=== PATIENT | male | born 1995 | race Caucasian/White ===

== ENCOUNTER 2016-08-14 03:10 | Emergency (ER) | payer OTHER ==
[2016-08-14 03:20] VITALS: TEMP 37.3
[2016-08-14] MEDS ORDERED: ASPIRIN 81 MG CHEW PO STA (03:28)
--- NOTE | 2016-08-14 03:46 | EMERGENCY ROOM VISIT NOTE ---
History Report prepared by [place]: Phylicia Guerrero Under the Supervision of: Dr. Elli Purvis M.D. First contact with patient: 03:25 Chief Complaint: CHEST PAIN Stated Complaint: CHEST PAIN History of Present Illness The patient is a 21 year old male who presents to the Emergency Room with complaints of persistent left sided chest pain that began an hour ago. He was arguing with a friend when his pain began. Afterwards, he went back to bed but his pain persisted which concerned him. He called the nurse at [facility] who recommended that the patient come to the ED. His current pain is a 2/10. He notes that he ate within the past few hours. Upon arrival, he reports that he had occasional belching. Denies cough, shortness of breath, or other complaints. Denies any chest trauma. 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 A total of 10 systems reviewed and were otherwise negative. Past Medical & Surgical Medical Problems: (1) Blurred vision (2) No Known Active Medical Problems Family History Diabetes mellitus Social History Smoking Status: Never Smoker Marital Status: single Occupation Status: [employer] student Current/Historical Medications No Active Prescriptions or Reported Meds Allergies Coded Allergies: No Known Allergies (Unverified , 08/14/16) Physical Exam Vital Signs Date Time Temp Pulse Resp B/P Pulse Ox O2 Delivery O2 Flow Rate FiO2 08/14/16 05:48 80 16 105/49 98 Room Air 08/14/16 04:53 Room Air 08/14/16 03:20 37.3 94 20 132/68 100 Room Air Physical Exam Vital signs reviewed. General: Well-appearing 21 year old male, in no significant distress. HEENT: No scleral icterus, PERRLA, neck supple. Atraumatic. Cardiovascular: Regular rate and rhythm, no extra sounds. Pulmonary: Clear to auscultation bilaterally, normal work of breathing. Abdomen: Soft, nontender, nondistended, positive bowel sounds. Musculoskeletal: Atraumatic, no peripheral edema. Neurologic: Patient awake alert and oriented x 3 Skin: Warm, dry, no rash Medical Decision & Procedures ER Provider Diagnostic Interpretation: Chest x-ray 1 view per my interpretation: No pneumothorax, no focal lung consolidation, no failure Laboratory Results 08/14/16 04:15 Red Blood Count 4.97, Mean Corpuscular Volume 81.7, Mean Corpuscular Hemoglobin 28.4, Mean Corpuscular Hemoglobin Concent 34.7, Mean Platelet Volume 9.4, Neutrophils (%) (Auto) 71.2, Lymphocytes (%) (Auto) 18.3, Monocytes (%) (Auto) 10.3, Eosinophils (%) (Auto) 0.0, Basophils (%) (Auto) 0.2, Neutrophils # (Auto ) 3.75, Lymphocytes # (Auto) 0.96, Monocytes # (Auto) 0.54, Eosinophils # (Auto ) 0.00, Basophils # (Auto) 0.01 08/14/16 04:15 Test 08/14/16 04:15 08/14/16 04:21 White Blood Count 5.26 K/uL (4.8-10.8) Red Blood Count 4.97 M/uL (4.7-6.1) Hemoglobin 14.1 g/dL (14.0-18.0) Hematocrit 40.6 % (42-52) Mean Corpuscular Volume 81.7 fL (80-100) Mean Corpuscular Hemoglobin 28.4 pg (25-34) Mean Corpuscular Hemoglobin Concent 34.7 g/dl (32-36) Platelet Count 170 K/uL (130-400) Mean Platelet Volume 9.4 fL (7.4-10.4) Neutrophils (%) (Auto) 71.2 % Lymphocytes (%) (Auto) 18.3 % Monocytes (%) (Auto) 10.3 % Eosinophils (%) (Auto) 0.0 % Basophils (%) (Auto) 0.2 % Neutrophils # (Auto) 3.75 K/uL (1.4-6.5) Lymphocytes # (Auto) 0.96 K/uL (1.2-3.4) Monocytes # (Auto) 0.54 K/uL (0.11-0.59) Eosinophils # (Auto) 0.00 K/uL (0-0.5) Basophils # (Auto) 0.01 K/uL (0-0.2) RDW Standard Deviation 37.8 fL (36.4-46.3) RDW Coefficient of Variation 12.6 % (11.5-14.5) Immature Granulocyte % (Auto) 0.0 % Immature Granulocyte # (Auto) 0.00 K/uL (0.00-0.02) Anion Gap 9.0 mmol/L (3-11) Estimated GFR () 124.1 Estimated GFR (Non- 107.1 BUN/Creatinine Ratio 14.5 (10-20) Calcium Level 8.7 mg/dl (8.5-10.1) Total Bilirubin 0.5 mg/dl (0.2-1) Direct Bilirubin 0.1 mg/dl (0-0.2) Aspartate Amino Transf (AST/SGOT) 29 U/L (15-37) Alanine Aminotransferase (ALT/SGPT) 22 U/L (12-78) Alkaline Phosphatase 71 U/L (45-117) Total Protein 7.5 gm/dl (6.4-8.2) Albumin 4.1 gm/dl (3.4-5.0) Bedside Troponin I 0.010 ng/ml (0-0.045) Laboratory results per my review. Medications Administered Medications (Trade) Dose Ordered Sig/[place] Route Start Time Stop Time Status Last Admin Dose Admin Aspirin (Aspirin Chew) 324 mg NOW STAT PO 08/14/16 03:28 08/14/16 03:29 DC 08/14/16 04:05 324 MG ECG Indication: chest pain Rate (beats per minute): 89 Rhythm: sinus with SA Findings: RBBB, no acute ischemic change ED Course 0338: The patient was evaluated in room A4. A complete history and physical examination was performed. Ordered Aspirin 324 mg PO. 0540: Upon reevaluation, the patient was resting comfortably. I discussed findings with him. He verbalized agreement of the treatment plan. The patient was discharged home. Medical Decision Differential diagnosis: Acute coronary syndrome, pulmonary embolus, aortic dissection, musculoskeletal pain, pneumonia, pleural effusion, pneumothorax This patient was evaluated and appeared to be in no significant distress. Physical examination is fairly unrevealing. EKG reveals a right bundle-branch block without sign of acute ischemia. Patient was given aspirin 325 mg to chew. Chest x-ray is negative. Cardiac enzymes are negative. D-dimer is negative. Patient was informed of the findings. He was reassured and asked to use ibuprofen as needed for pain. He will drink plenty of clear fluids and follow-up with his primary care physician this week for reevaluation. He will return to the ER for worsening of symptoms or any medical concerns. Impression Primary Impression: Non-cardiac chest pain Scribe Attestation The scribe's documentation has been prepared under my direction and personally reviewed by me in its entirety. I confirm that the note above accurately reflects all work, treatment, procedures, and medical decision making performed by me. Departure Information Dispostion Home / Self-Care Prescriptions No Active Prescriptions or Reported Meds Referrals [facility] Forms HOME CARE DOCUMENTATION FORM, IMPORTANT VISIT INFORMATION Patient Instructions My [facility] Additional Instructions Diagnosis: Noncardiac chest pain Ibuprofen 600 mg every 6 hours as needed for pain with food. Drink plenty of clear fluids. Follow-up with [facility] this week for reevaluation if symptoms persist. Return to the ER for worsening of symptoms or any medical concerns.
[2016-08-14 04:29] LABS: BASO % 0.2 %; BASO ABS # 0.01 K/uL (0-0.2); COMPLETE YES; HEMATOCRIT 40.6 % (42-52); LYMPH % 18.3 %; LYMPH ABS # 0.96 K/uL (1.2-3.4); MEAN CELL VOLUME 81.7 fL (80-100); MEAN CORPUSCULAR HEMOGLOBIN 28.4 pg (25-34); MEAN CORPUSCULAR HGB CONC 34.7 g/dl (32-36); MEAN PLATELET VOLUME 9.4 fL (7.4-10.4); MONO % 10.3 %; NEUT % 71.2 %; PLATELET COUNT 170 K/uL (130-400); RED BLOOD COUNT 4.97 M/uL (4.7-6.1); WHITE BLOOD COUNT 5.26 K/uL (4.8-10.8)
[2016-08-14 04:44] LABS: ALT/SGPT 22 U/L (12-78); AST/SGOT 29 U/L (15-37); BLOOD UREA NITROGEN 14 mg/dl (7-18); BUN/CREATININE RATIO 14.5 (10-20); CALCIUM 8.7 mg/dl (8.5-10.1); CARBON DIOXIDE 27 mmol/L (21-32); CHLORIDE 106 mmol/L (98-107); GLUCOSE 102 mg/dl (70-99); POTASSIUM 3.8 mmol/L (3.5-5.1); SODIUM 142 mmol/L (136-145)
[2016-08-14 04:46] LABS: ALKALINE PHOSPHATASE 71 U/L (45-117)
[2016-08-14 05:48] VITALS: BP 105/49; PULSE 80; O2SAT 98
--- NOTE | 2016-08-14 08:23 | DIAGNOSTIC IMAGING REPORT ---
CHEST ONE VIEW PORTABLE CLINICAL HISTORY: Chest pain. COMPARISON STUDY: No previous studies for comparison. FINDINGS: Lung volumes are normal. Lungs are clear. There is no pneumothorax or pleural effusion. Cardiac size is normal. Mediastinal contours are normal. There is no evidence of pulmonary edema. IMPRESSION: No acute cardiopulmonary findings. Electronically signed by: Warner Subramanian M.D. 08/14/2016 8:22 AM Dictated Date/Time: 08/14/2016 8:22 AM
== END 2016-08-14 06:20 | disposition home or self-care (01) ==
LOC: C.EDB 03:12 → C.EDA 06:20
DX: R07.89 Other chest pain (principal); I45.10 Unspecified right bundle-branch block; Z83.3 Family history of diabetes mellitus